=== PATIENT | female | born 1935 | race Caucasian/White ===

== ENCOUNTER 2018-11-16 19:07 | Inpatient (IN) ==
[2018-11-16] MEDS ORDERED: GLUCAGON 1 MG VIAL IM PRN ×2 (22:21→22:42)
[2018-11-16] MEDS ORDERED: DEXTROSE 50% 25 GM/50 ML VIAL IV PRN (22:21)
[2018-11-16] MEDS ORDERED: DEXTROSE 50% 25 GM/50 ML SYRINGE IV PRN (22:42)
[2018-11-16] MEDS ORDERED: DILTIAZEM 50 MG/10 ML VIAL IV ONE (22:46)
[2018-11-16] MEDS ORDERED: SODIUM CHLORIDE 0.9% 100 ML IV ONE (22:50)
[2018-11-16] MEDS ORDERED: LEVOFLOXACIN INJ 750 MG in PREMIX 1 EACH IV SCH (23:00)
[2018-11-16] MEDS ORDERED: FUROSEMIDE 40 MG/4 ML VIAL IV ONE (23:11)
[2018-11-16] MEDS: dilTIAZem Drip 125 MG/125 ML PREMIX IV SCH (23:12)
[2018-11-17] MEDS: PIPERACILLIN/TAZOBACTAM 3,375 MG in SODIUM CHLORIDE 0.9% 100 ML IV SCH ×3 (00:09→17:00)
[2018-11-17 00:20] LABS: Basophils % 0.1 % (0.0-0.8); Hematocrit 32.1 VOL% (35.7-47.0); Immature Granulocytes % 0.4 %; Immature Granulocytes Absolute 0.06 #; Lymphocytes # 0.5 10*3/uL (1.4-4.0); Lymphocytes % 3.2 % (21.3-54.2); Red Cell Distribution Width 18.6 % (9.3-17.3)
[2018-11-17] MEDS: LEVALBUTEROL 1.25 MG/3 ML NEB RESP TX SCH ×4 (00:26→19:46)
[2018-11-17 00:29] LABS: Hemoglobin 9.4 GM/DL (12.0-16.0); Mean Corpuscular HGB Conc 29.3 GM/DL (32-36); Mean Corpuscular Hemoglobin 24 PG (27-34); Mean Corpuscular Volume 80.3 FL (87-102); Monocytes # 1.7 10*3/uL (0.11-0.8); Monocytes % 11.4 % (1.7-12.7); Neutrophils # 12.4 10*3/uL (1.4-7.4); Neutrophils % 84.9 % (38.7-73.9); Platelet Count 239 T/CUMM (130-400); White Blood Count 14.6 T/CUMM (4-12)
[2018-11-17 00:51] LABS: Albumin 3.7 G/DL (3.4-5.0); Calcium 9.5 MG/DL (8.5-10.1); Osmolality,Calculated 262.6 MOS/KG (273-304); Potassium 5.5 MMOL/L (3.5-5.1)
[2018-11-17] MEDS: ENOXAPARIN 80 MG/0.8 ML SYRINGE SUBCUT SCH ×2 (01:39→13:15)
[2018-11-17 02:40] LABS: Apearance,Urine CLOUDY (Clear); Bacteria,Urine Many /HPF (Few); Bilirubin,Urine Negative (Negative); Blood, Urine Moderate mg/dL (Negative); Glucose,Urine (UA) Negative (Negative); Ketones,Urine Negative (Negative); Nitrite,Urine Negative (Negative); Protein,Urine 30 MG/DL; RBC,Urine 20 /HPF (0-4); Urine Color Yellow (Yellow); Urine Specific Gravity 1.015 (1.001-1.035); Urine Urobilinogen < 2.0 EU/DL (0.2-1.0); WBC,Urine 318 /HPF (0-6)
[2018-11-17 03:41] LABS: Band Neutrophils 6 % (0-10); Lymphocytes 3 % (20-55); Segmented Neutrophils 81 % (50-85); Total Cells Counted 100
[2018-11-17 03:42] LABS: Anisocytosis 1+; Hypochromasia 1+; Ovalocytes Few; Platelet Estimate Adequate; Target Cells Few
[2018-11-17] MEDS: HYDROmorphone 2 MG/1 ML VIAL IV PRN (04:12)
[2018-11-17 07:49] LABS: Basophils % 0.2 % (0.0-0.8); Hematocrit 30.2 VOL% (35.7-47.0); Hemoglobin 8.8 GM/DL (12.0-16.0); Immature Granulocytes % 0.4 %; Immature Granulocytes Absolute 0.05 #; Lymphocytes # 0.7 10*3/uL (1.4-4.0); Lymphocytes % 5.2 % (21.3-54.2); Mean Corpuscular HGB Conc 29.1 GM/DL (32-36); Mean Corpuscular Hemoglobin 24 PG (27-34); Mean Corpuscular Volume 80.5 FL (87-102); Mean Platelet Volume 11.8 FL (9.6-12.0); Monocytes # 1.3 10*3/uL (0.11-0.8); Monocytes % 10.7 % (1.7-12.7); NRBC # 0.02 10*3/uL; Neutrophils # 10.5 10*3/uL (1.4-7.4); Neutrophils % 83.5 % (38.7-73.9); Platelet Count 196 T/CUMM (130-400); Red Blood Count 3.75 MC/CUMM (3.8-5.5); Red Cell Distribution Width 18.6 % (9.3-17.3); White Blood Count 12.6 T/CUMM (4-12)
[2018-11-17] MEDS ORDERED: ONDANSETRON 4 MG/2 ML VIAL IV PRN (08:05)
[2018-11-17 08:10] LABS: Albumin 3.4 G/DL (3.4-5.0); Bilirubin,Total 0.6 MG/DL (0.2-1.0); Calcium 8.8 MG/DL (8.5-10.1); Osmolality,Calculated 263.5 MOS/KG (273-304); Potassium 5.2 MMOL/L (3.5-5.1); Total Protein 7.4 G/DL (6.4-8.3)
[2018-11-17] MEDS: INSULIN REGULAR 100 UNIT/ML SUBCUT SCH ×4 (08:24→21:21)
[2018-11-17] MEDS: methylPREDNISolone SOD SUC 40 MG/1 ML VIAL IV SCH ×2 (08:27→16:56)
[2018-11-17] MEDS: FUROSEMIDE 40 MG/4 ML VIAL IV SCH ×2 (08:29→16:59)
[2018-11-17] MEDS: dilTIAZem Drip 125 MG/125 ML PREMIX IV SCH ×3 (08:31→23:34)
[2018-11-17] MEDS ORDERED: PANTOPRAZOLE 40 MG TABLET PO SCH (09:00)
[2018-11-17] MEDS ORDERED: ENOXAPARIN 40 MG/0.4 ML SYRINGE SUBCUT SCH (09:00)
[2018-11-17] MEDS: LINEZOLID INJ 600 MG in PREMIX 1 EACH IV SCH ×2 (12:30→22:52)
[2018-11-17] MEDS ORDERED: MAGNESIUM HYDROXIDE SUSP 30 ML UDCUP PO PRN (16:54)
[2018-11-17] MEDS ORDERED: CARBIDOPA/LEVODOPA 25-100 MG TABLET PO SCH (21:00)
[2018-11-17] MEDS: METOPROLOL TARTRATE 25 MG TABLET PO SCH (21:21)
[2018-11-17] MEDS: DONEPEZIL 10 MG TABLET PO SCH (21:21)
[2018-11-17] MEDS: MAGNESIUM HYDROXIDE SUSP 30 ML UDCUP PO SCH (21:21)
[2018-11-17] MEDS: BUDESONIDE/FORMOTEROL 160-4.5 INHALER 6 GM INH SCH (21:27)
[2018-11-18] MEDS: methylPREDNISolone SOD SUC 40 MG/1 ML VIAL IV SCH ×4 (00:47→23:55)
[2018-11-18] MEDS: PIPERACILLIN/TAZOBACTAM 3,375 MG in SODIUM CHLORIDE 0.9% 100 ML IV SCH ×4 (00:47→23:55)
[2018-11-18] MEDS: LEVALBUTEROL 1.25 MG/3 ML NEB RESP TX SCH ×4 (01:21→20:33)
[2018-11-18] MEDS: dilTIAZem Drip 125 MG/125 ML PREMIX IV SCH (03:17)
[2018-11-18 05:19] LABS: Hematocrit 29.9 VOL% (35.7-47.0); Hemoglobin 8.7 GM/DL (12.0-16.0); Immature Granulocytes % 0.6 %; Immature Granulocytes Absolute 0.05 #; Lymphocytes # 0.3 10*3/uL (1.4-4.0); Lymphocytes % 3.4 % (21.3-54.2); Mean Corpuscular HGB Conc 29.1 GM/DL (32-36); Mean Corpuscular Hemoglobin 23 PG (27-34); Mean Corpuscular Volume 80.2 FL (87-102); Mean Platelet Volume 11.8 FL (9.6-12.0); Monocytes # 0.4 10*3/uL (0.11-0.8); Monocytes % 3.9 % (1.7-12.7); NRBC # 0.02 10*3/uL; Neutrophils # 8.2 10*3/uL (1.4-7.4); Neutrophils % 92.1 % (38.7-73.9); Platelet Count 202 T/CUMM (130-400); Red Blood Count 3.73 MC/CUMM (3.8-5.5); Red Cell Distribution Width 18.8 % (9.3-17.3); White Blood Count 8.9 T/CUMM (4-12)
[2018-11-18 05:39] LABS: Calcium 8.7 MG/DL (8.5-10.1); Osmolality,Calculated 266.4 MOS/KG (273-304); Potassium 4.9 MMOL/L (3.5-5.1)
[2018-11-18 05:51] LABS: Hypochromasia 2+; Lymphocytes 6 % (20-55); Platelet Estimate Normal; Segmented Neutrophils 90 % (50-85); Total Cells Counted 100
[2018-11-18] MEDS ORDERED: POLYETHYLENE GLYCOL POWDER 17 GM PACK PO SCH (09:00)
[2018-11-18] MEDS: MONTELUKAST 10 MG TABLET PO SCH (09:05)
[2018-11-18] MEDS: MAGNESIUM HYDROXIDE SUSP 30 ML UDCUP PO SCH ×2 (09:05→21:01)
[2018-11-18] MEDS: METOPROLOL TARTRATE 25 MG TABLET PO SCH ×2 (09:05→21:01)
[2018-11-18] MEDS: FUROSEMIDE 40 MG/4 ML VIAL IV SCH ×2 (09:05→17:18)
[2018-11-18] MEDS: PANTOPRAZOLE 40 MG VIAL IV SCH (09:08)
[2018-11-18] MEDS: INSULIN REGULAR 100 UNIT/ML SUBCUT SCH ×4 (09:13→21:05)
[2018-11-18] MEDS: BUDESONIDE/FORMOTEROL 160-4.5 INHALER 6 GM INH SCH ×2 (09:14→21:01)
[2018-11-18] MEDS: LINEZOLID INJ 600 MG in PREMIX 1 EACH IV SCH ×2 (10:44→22:36)
[2018-11-18] MEDS: DILTIAZEM CD 240 MG CAPSULE PO SCH (10:44)
[2018-11-18] MEDS: DONEPEZIL 10 MG TABLET PO SCH (21:00)
[2018-11-19] MEDS: LEVALBUTEROL 1.25 MG/3 ML NEB RESP TX SCH ×4 (01:15→19:07)
[2018-11-19 02:45] LABS: Hematocrit 30.3 VOL% (35.7-47.0); Hemoglobin 8.8 GM/DL (12.0-16.0); Immature Granulocytes % 0.2 %; Immature Granulocytes Absolute 0.02 #; Lymphocytes # 0.3 10*3/uL (1.4-4.0); Lymphocytes % 3.4 % (21.3-54.2); Mean Corpuscular Hemoglobin 23 PG (27-34); Mean Corpuscular Volume 80.6 FL (87-102); Mean Platelet Volume 11.6 FL (9.6-12.0); Monocytes # 0.5 10*3/uL (0.11-0.8); Monocytes % 5.1 % (1.7-12.7); Neutrophils # 8.5 10*3/uL (1.4-7.4); Neutrophils % 91.3 % (38.7-73.9); Platelet Count 211 T/CUMM (130-400); Red Blood Count 3.76 MC/CUMM (3.8-5.5); Red Cell Distribution Width 18.6 % (9.3-17.3); White Blood Count 9.3 T/CUMM (4-12)
[2018-11-19] MEDS: dilTIAZem Drip 125 MG/125 ML PREMIX IV SCH (03:03)
[2018-11-19 03:36] LABS: Calcium 8.7 MG/DL (8.5-10.1); Osmolality,Calculated 258.1 MOS/KG (273-304); Potassium 5.7 MMOL/L (3.5-5.1)
[2018-11-19 04:57] LABS: Band Neutrophils 1 % (0-10); Hypochromasia 1+; Lymphocytes 4 % (20-55); Ovalocytes Slight; Platelet Estimate Adequate; Segmented Neutrophils 86 % (50-85); Total Cells Counted 100
[2018-11-19] MEDS ORDERED: SODIUM POLYSTYRENE SULFATE 15 GM/60 ML BOTTLE PO ONE ×2 (06:47→20:00)
[2018-11-19] MEDS: MONTELUKAST 10 MG TABLET PO SCH (08:14)
[2018-11-19] MEDS: DILTIAZEM CD 240 MG CAPSULE PO SCH ×2 (08:14→22:13)
[2018-11-19] MEDS: METOPROLOL TARTRATE 25 MG TABLET PO SCH ×2 (08:17→22:15)
[2018-11-19] MEDS: MAGNESIUM HYDROXIDE SUSP 30 ML UDCUP PO SCH (08:18)
[2018-11-19] MEDS: PANTOPRAZOLE 40 MG VIAL IV SCH (08:19)
[2018-11-19] MEDS: PIPERACILLIN/TAZOBACTAM 3,375 MG in SODIUM CHLORIDE 0.9% 100 ML IV SCH ×2 (08:23→17:22)
[2018-11-19] MEDS: methylPREDNISolone SOD SUC 40 MG/1 ML VIAL IV SCH ×2 (08:28→17:22)
[2018-11-19] MEDS: FUROSEMIDE 40 MG/4 ML VIAL IV SCH (08:29)
[2018-11-19] MEDS: BUDESONIDE/FORMOTEROL 160-4.5 INHALER 6 GM INH SCH ×2 (08:30→22:20)
[2018-11-19] MEDS: INSULIN REGULAR 100 UNIT/ML SUBCUT SCH ×4 (08:31→23:19)
[2018-11-19] MEDS: LINEZOLID INJ 600 MG in PREMIX 1 EACH IV SCH (10:22)
[2018-11-19] MEDS: HYDROmorphone 2 MG/1 ML VIAL IV PRN ×3 (12:20→22:20)
[2018-11-19] MEDS: SODIUM CHLORIDE 0.9% 1,000 ML IV SCH (13:22)
[2018-11-19] MEDS: DONEPEZIL 10 MG TABLET PO SCH (22:12)
[2018-11-19] MEDS: ALPRAZolam 0.5 MG TABLET PO PRN (23:10)
[2018-11-20] MEDS: LEVALBUTEROL 1.25 MG/3 ML NEB RESP TX SCH ×4 (00:17→19:11)
[2018-11-20] MEDS: methylPREDNISolone SOD SUC 40 MG/1 ML VIAL IV SCH ×3 (02:00→18:10)
[2018-11-20] MEDS: ENOXAPARIN 80 MG/0.8 ML SYRINGE SUBCUT SCH (02:00)
[2018-11-20] MEDS: PIPERACILLIN/TAZOBACTAM 3,375 MG in SODIUM CHLORIDE 0.9% 100 ML IV SCH ×3 (02:03→18:11)
[2018-11-20 04:58] LABS: Calcium 8.3 MG/DL (8.5-10.1); Osmolality,Calculated 272.1 MOS/KG (273-304); Potassium 3.9 MMOL/L (3.5-5.1)
[2018-11-20] MEDS: SODIUM CHLORIDE 0.9% 1,000 ML IV SCH (09:16)
[2018-11-20] MEDS: FUROSEMIDE 40 MG/4 ML VIAL IV SCH (09:18)
[2018-11-20] MEDS: ALPRAZolam 0.5 MG TABLET PO PRN ×2 (09:24→20:21)
[2018-11-20] MEDS: PANTOPRAZOLE 40 MG VIAL IV SCH (09:24)
[2018-11-20] MEDS: INSULIN REGULAR 100 UNIT/ML SUBCUT SCH ×4 (09:24→20:20)
[2018-11-20] MEDS: MONTELUKAST 10 MG TABLET PO SCH (09:25)
[2018-11-20] MEDS: DILTIAZEM CD 240 MG CAPSULE PO SCH ×2 (09:25→20:21)
[2018-11-20] MEDS: METOPROLOL TARTRATE 25 MG TABLET PO SCH ×2 (09:25→21:17)
[2018-11-20] MEDS: BUDESONIDE/FORMOTEROL 160-4.5 INHALER 6 GM INH SCH ×2 (09:26→20:22)
[2018-11-20] MEDS: HYDROmorphone 2 MG/1 ML VIAL IV PRN (11:50)
[2018-11-20] MEDS: DONEPEZIL 10 MG TABLET PO SCH (20:21)
[2018-11-21] MEDS: methylPREDNISolone SOD SUC 40 MG/1 ML VIAL IV SCH ×3 (00:14→17:45)
[2018-11-21] MEDS: PIPERACILLIN/TAZOBACTAM 3,375 MG in SODIUM CHLORIDE 0.9% 100 ML IV SCH ×3 (00:15→17:46)
[2018-11-21] MEDS: LEVALBUTEROL 1.25 MG/3 ML NEB RESP TX SCH ×4 (00:38→19:43)
[2018-11-21 05:01] LABS: Calcium 8.4 MG/DL (8.5-10.1); Osmolality,Calculated 274.5 MOS/KG (273-304); Potassium 3.3 MMOL/L (3.5-5.1)
[2018-11-21] MEDS: SODIUM CHLORIDE 0.9% 1,000 ML IV SCH (05:16)
[2018-11-21] MEDS: dilTIAZem Drip 125 MG/125 ML PREMIX IV SCH (07:26)
[2018-11-21] MEDS: PANTOPRAZOLE 40 MG VIAL IV SCH (09:34)
[2018-11-21] MEDS: FUROSEMIDE 40 MG/4 ML VIAL IV SCH (09:35)
[2018-11-21] MEDS: INSULIN REGULAR 100 UNIT/ML SUBCUT SCH ×4 (09:35→21:48)
[2018-11-21] MEDS: BUDESONIDE/FORMOTEROL 160-4.5 INHALER 6 GM INH SCH ×2 (09:36→21:48)
[2018-11-21] MEDS: DILTIAZEM CD 240 MG CAPSULE PO SCH ×2 (09:36→21:47)
[2018-11-21] MEDS: MONTELUKAST 10 MG TABLET PO SCH (09:36)
[2018-11-21] MEDS: METOPROLOL TARTRATE 25 MG TABLET PO SCH (09:36)
[2018-11-21] MEDS ORDERED: POTASSIUM CHLORIDE 20 MEQ/15 ML UDCUP PO ONE (14:26)
[2018-11-21] MEDS: METOPROLOL TARTRATE 50 MG TABLET PO SCH (21:47)
[2018-11-21] MEDS: DONEPEZIL 10 MG TABLET PO SCH (21:47)
[2018-11-22] MEDS: methylPREDNISolone SOD SUC 40 MG/1 ML VIAL IV SCH ×3 (00:21→16:45)
[2018-11-22] MEDS: LEVALBUTEROL 1.25 MG/3 ML NEB RESP TX SCH ×4 (02:34→19:32)
[2018-11-22] MEDS: PIPERACILLIN/TAZOBACTAM 3,375 MG in SODIUM CHLORIDE 0.9% 100 ML IV SCH ×3 (03:21→16:46)
[2018-11-22 04:53] LABS: Calcium 8.9 MG/DL (8.5-10.1); Osmolality,Calculated 271.7 MOS/KG (273-304); Potassium 3.7 MMOL/L (3.5-5.1)
[2018-11-22] MEDS: DILTIAZEM CD 240 MG CAPSULE PO SCH ×2 (08:42→20:00)
[2018-11-22] MEDS: METOPROLOL TARTRATE 50 MG TABLET PO SCH ×2 (08:43→20:00)
[2018-11-22] MEDS: INSULIN REGULAR 100 UNIT/ML SUBCUT SCH ×4 (09:16→22:29)
[2018-11-22] MEDS: FUROSEMIDE 40 MG/4 ML VIAL IV SCH (09:17)
[2018-11-22] MEDS: MONTELUKAST 10 MG TABLET PO SCH (09:18)
[2018-11-22] MEDS: BUDESONIDE/FORMOTEROL 160-4.5 INHALER 6 GM INH SCH ×2 (09:18→22:17)
[2018-11-22] MEDS: MAGNESIUM HYDROXIDE SUSP 30 ML UDCUP PO SCH ×2 (09:18→22:18)
[2018-11-22] MEDS: PANTOPRAZOLE 40 MG VIAL IV SCH ×2 (09:18→22:18)
[2018-11-22] MEDS ORDERED: PROPOFOL 200 MG/20 ML VIAL IV ONE (09:26)
[2018-11-22] MEDS ORDERED: ETOMIDATE 40 MG/20 ML VIAL IV ONE (09:27)
[2018-11-22] MEDS ORDERED: ESMOLOL 100 MG/10 ML VIAL IV ONE (09:27)
[2018-11-22] MEDS: HYDROmorphone 2 MG/1 ML VIAL IV PRN (10:48)
[2018-11-22] MEDS: DONEPEZIL 10 MG TABLET PO SCH (20:00)
[2018-11-22] MEDS ORDERED: dilTIAZem Drip 125 MG/125 ML PREMIX IV ONE (20:11)
[2018-11-22] MEDS: dilTIAZem Drip 125 MG/125 ML PREMIX IV SCH (20:12)
[2018-11-22] MEDS: POTASSIUM CHLORIDE 20 MEQ TABLET PO PRN (22:18)
[2018-11-23] MEDS: LEVALBUTEROL 1.25 MG/3 ML NEB RESP TX SCH ×4 (00:27→19:26)
[2018-11-23] MEDS: methylPREDNISolone SOD SUC 40 MG/1 ML VIAL IV SCH ×4 (01:20→23:41)
[2018-11-23] MEDS: PIPERACILLIN/TAZOBACTAM 3,375 MG in SODIUM CHLORIDE 0.9% 100 ML IV SCH ×2 (01:22→11:25)
[2018-11-23 04:35] LABS: Calcium 9.2 MG/DL (8.5-10.1); Osmolality,Calculated 281.2 MOS/KG (273-304); Potassium 4.3 MMOL/L (3.5-5.1)
[2018-11-23 04:40] LABS: Hemoglobin 9.2 GM/DL (12.0-16.0); Immature Granulocytes % 0.2 %; Immature Granulocytes Absolute 0.02 #; Lymphocytes # 0.2 10*3/uL (1.4-4.0); Lymphocytes % 2.6 % (21.3-54.2); Mean Corpuscular HGB Conc 28.5 GM/DL (32-36); Mean Corpuscular Hemoglobin 23 PG (27-34); Mean Corpuscular Volume 82.2 FL (87-102); Mean Platelet Volume 10.8 FL (9.6-12.0); Monocytes # 0.5 10*3/uL (0.11-0.8); Monocytes % 5.7 % (1.7-12.7); Neutrophils # 7.4 10*3/uL (1.4-7.4); Neutrophils % 91.5 % (38.7-73.9); Platelet Count 140 T/CUMM (130-400); Red Blood Count 3.93 MC/CUMM (3.8-5.5); Red Cell Distribution Width 18.2 % (9.3-17.3); White Blood Count 8.1 T/CUMM (4-12)
[2018-11-23 04:42] LABS: Hematocrit 32.3 VOL% (35.7-47.0)
[2018-11-23 04:51] LABS: Hypochromasia Slight; Lymphocytes 4 % (20-55); Platelet Estimate Adequate; Polychromasia Few; Segmented Neutrophils 95 % (50-85); Total Cells Counted 100
[2018-11-23 09:02] LABS: ABG Base Excess 16.6 MMOL/L (-2.5-2.5); ABG HCO3 43.7 MMOL/L (20-26); ABG Oxygen Saturation 82.4 % (95-100); ABG PH 7.418 (7.35-7.45); ABG PO2 46.6 MM HG (80-95); ABG TCO2 45.9 MMOL/L (23-27)
[2018-11-23 09:04] LABS: ABG PCO2 69.3 MM HG (35-48)
[2018-11-23] MEDS ORDERED: METOPROLOL TARTRATE 50 MG TABLET PO ONE (09:50)
[2018-11-23] MEDS ORDERED: FUROSEMIDE 40 MG/4 ML VIAL IV ONE (10:11)
[2018-11-23] MEDS: INSULIN REGULAR 100 UNIT/ML SUBCUT SCH ×4 (11:03→20:46)
[2018-11-23] MEDS: MONTELUKAST 10 MG TABLET PO SCH (11:17)
[2018-11-23] MEDS: METOPROLOL TARTRATE 50 MG TABLET PO SCH (11:17)
[2018-11-23] MEDS: DILTIAZEM CD 240 MG CAPSULE PO SCH ×2 (11:17→20:47)
[2018-11-23] MEDS: PANTOPRAZOLE 40 MG VIAL IV SCH ×2 (11:22→20:47)
[2018-11-23] MEDS: BUDESONIDE/FORMOTEROL 160-4.5 INHALER 6 GM INH SCH ×2 (11:25→20:51)
[2018-11-23] MEDS: MAGNESIUM HYDROXIDE SUSP 30 ML UDCUP PO SCH ×2 (11:25→20:00)
[2018-11-23] MEDS: FUROSEMIDE 40 MG/4 ML VIAL IV SCH ×2 (11:31→16:33)
[2018-11-23] MEDS ORDERED: ENOXAPARIN 80 MG/0.8 ML SYRINGE SUBCUT ONE (14:46)
[2018-11-23] MEDS: ALPRAZolam 0.25 MG TABLET PO PRN (16:33)
[2018-11-23] MEDS: AMOXICILLIN 50 MG/ML 150 ML/BOTTLE PO SCH ×2 (16:33→22:00)
[2018-11-23] MEDS: METOPROLOL TARTRATE 100 MG TABLET PO SCH (20:47)
[2018-11-23] MEDS: DONEPEZIL 10 MG TABLET PO SCH (20:47)
[2018-11-24] MEDS: LEVALBUTEROL 1.25 MG/3 ML NEB RESP TX SCH ×4 (00:15→19:40)
[2018-11-24] MEDS: ALPRAZolam 0.25 MG TABLET PO PRN ×2 (03:07→21:19)
[2018-11-24 03:53] LABS: Hematocrit 33.2 VOL% (35.7-47.0); Hemoglobin 9.4 GM/DL (12.0-16.0); Immature Granulocytes % 0.4 %; Immature Granulocytes Absolute 0.04 #; Lymphocytes # 0.4 10*3/uL (1.4-4.0); Lymphocytes % 4.1 % (21.3-54.2); Mean Corpuscular HGB Conc 28.3 GM/DL (32-36); Mean Corpuscular Hemoglobin 23 PG (27-34); Mean Corpuscular Volume 81.2 FL (87-102); Mean Platelet Volume 10.5 FL (9.6-12.0); Monocytes # 0.5 10*3/uL (0.11-0.8); Monocytes % 5.2 % (1.7-12.7); Neutrophils # 9.1 10*3/uL (1.4-7.4); Neutrophils % 90.3 % (38.7-73.9); Platelet Count 149 T/CUMM (130-400); Red Blood Count 4.09 MC/CUMM (3.8-5.5); Red Cell Distribution Width 18.3 % (9.3-17.3)
[2018-11-24 04:21] LABS: Blood Urea Nitrogen 28 MG/DL (7-18); Calcium 9.1 MG/DL (8.5-10.1); Glucose 156 MG/DL (74-106); Potassium 3.8 MMOL/L (3.5-5.1); Sodium 136 MMOL/L (136-145)
[2018-11-24] MEDS: dilTIAZem Drip 125 MG/125 ML PREMIX IV SCH ×3 (04:30→22:47)
[2018-11-24 04:41] LABS: Anisocytosis 1+; Band Neutrophils 3 % (0-10); Lymphocytes 3 % (20-55); Macrocytosis 1+; Ovalocytes 1+; Platelet Estimate Adequate; Segmented Neutrophils 89 % (50-85); Target Cells 2+; Total Cells Counted 100
[2018-11-24] MEDS: AMOXICILLIN 50 MG/ML 150 ML/BOTTLE PO SCH ×3 (05:35→23:37)
[2018-11-24] MEDS ORDERED: DIGOXIN 0.5 MG/2 ML AMP IV ONE (07:24)
[2018-11-24] MEDS: DILTIAZEM CD 240 MG CAPSULE PO SCH ×2 (08:19→21:27)
[2018-11-24] MEDS: METOPROLOL TARTRATE 100 MG TABLET PO SCH ×2 (08:19→22:50)
[2018-11-24] MEDS ORDERED: NITROGLYCERIN SL 0.4 MG TABLET SL ONE (08:19)
[2018-11-24] MEDS: MONTELUKAST 10 MG TABLET PO SCH (08:19)
[2018-11-24] MEDS ORDERED: NITROGLYCERIN SL 0.4 MG TABLET SL PRN (08:22)
[2018-11-24] MEDS ORDERED: ASPIRIN CHEW 81 MG TABLET PO ONE (08:23)
[2018-11-24] MEDS: FUROSEMIDE 40 MG/4 ML VIAL IV SCH ×2 (08:34→17:14)
[2018-11-24] MEDS: PANTOPRAZOLE 40 MG VIAL IV SCH (08:35)
[2018-11-24] MEDS: methylPREDNISolone SOD SUC 40 MG/1 ML VIAL IV SCH (08:36)
[2018-11-24] MEDS: BUDESONIDE/FORMOTEROL 160-4.5 INHALER 6 GM INH SCH ×2 (08:38→22:50)
[2018-11-24] MEDS: MAGNESIUM HYDROXIDE SUSP 30 ML UDCUP PO SCH ×2 (08:38→22:08)
[2018-11-24] MEDS: ISOSORBIDE MONONITRATE 30 MG TABLET PO SCH (08:46)
[2018-11-24] MEDS: INSULIN REGULAR 100 UNIT/ML SUBCUT SCH ×4 (09:43→21:21)
[2018-11-24] MEDS ORDERED: ENOXAPARIN 80 MG/0.8 ML SYRINGE SUBCUT ONE ×2 (10:00→17:00)
[2018-11-24 10:37] LABS: Troponin I 0.055 NG/ML (0.00-0.045)
[2018-11-24] MEDS: ASCORBIC ACID 500 MG TABLET PO SCH ×2 (12:45→21:19)
[2018-11-24] MEDS ORDERED: DIGOXIN 0.25 MG TABLET PO ONE (13:00)
[2018-11-24 13:14] LABS: Troponin I 0.055 NG/ML (0.00-0.045)
[2018-11-24] MEDS: POTASSIUM CHLORIDE 20 MEQ TABLET PO PRN (13:20)
[2018-11-24 16:04] LABS: Troponin I 0.057 NG/ML (0.00-0.045)
[2018-11-24 17:34] LABS: Total Protein,Pleural Fluid 2.3 G/DL
[2018-11-24 19:05] LABS: Lymphocytes,Pleural Fluid 81 %; Neutrophils,Pleural Fluid 19 %
[2018-11-24 19:07] LABS: RBC,Pleural Fluid 9162 T/CUMM
[2018-11-24] MEDS ORDERED: FUROSEMIDE 40 MG/4 ML VIAL IV ONE (20:22)
[2018-11-24] MEDS: DONEPEZIL 10 MG TABLET PO SCH (21:19)
[2018-11-24] MEDS: PANTOPRAZOLE 40 MG TABLET PO SCH (21:20)
[2018-11-24] MEDS: APIXABAN 5 MG TABLET PO SCH (21:21)
[2018-11-24] MEDS: MORPHINE 4 MG/1 ML VIAL IV PRN (23:35)
[2018-11-25] MEDS: LEVALBUTEROL 1.25 MG/3 ML NEB RESP TX SCH ×4 (00:09→20:14)
[2018-11-25] MEDS: MORPHINE 4 MG/1 ML VIAL IV PRN ×4 (03:57→20:01)
[2018-11-25 04:59] LABS: Basophils % 0.1 % (0.0-0.8); Hematocrit 29.6 VOL% (35.7-47.0); Hemoglobin 8.6 GM/DL (12.0-16.0); Immature Granulocytes % 0.6 %; Immature Granulocytes Absolute 0.08 #; Lymphocytes # 0.4 10*3/uL (1.4-4.0); Mean Corpuscular HGB Conc 29.1 GM/DL (32-36); Mean Corpuscular Hemoglobin 23 PG (27-34); Mean Corpuscular Volume 80.4 FL (87-102); Mean Platelet Volume 10.3 FL (9.6-12.0); Monocytes # 0.8 10*3/uL (0.11-0.8); Monocytes % 6.1 % (1.7-12.7); NRBC # 0.02 10*3/uL; Neutrophils # 12.2 10*3/uL (1.4-7.4); Neutrophils % 90.2 % (38.7-73.9); Platelet Count 121 T/CUMM (130-400); Red Blood Count 3.68 MC/CUMM (3.8-5.5); Red Cell Distribution Width 18.1 % (9.3-17.3); White Blood Count 13.5 T/CUMM (4-12)
[2018-11-25 05:15] LABS: Hypochromasia 2+; Lymphocytes 4 % (20-55); Microcytosis 1+; Ovalocytes Slight; Segmented Neutrophils 92 % (50-85); Target Cells Slight; Total Cells Counted 100
[2018-11-25 05:16] LABS: Platelet Estimate Adequate
[2018-11-25] MEDS: AMOXICILLIN 50 MG/ML 150 ML/BOTTLE PO SCH (05:49)
[2018-11-25 07:00] LABS: Blood Urea Nitrogen 42 MG/DL (7-18); Calcium 8.8 MG/DL (8.5-10.1); Glucose 258 MG/DL (74-106); Osmolality,Calculated 289.1 MOS/KG (273-304); Potassium 4.3 MMOL/L (3.5-5.1); Sodium 135 MMOL/L (136-145)
[2018-11-25] MEDS: INSULIN REGULAR 100 UNIT/ML SUBCUT SCH ×4 (09:52→20:38)
[2018-11-25] MEDS: FUROSEMIDE 40 MG/4 ML VIAL IV SCH ×2 (09:52→16:00)
[2018-11-25] MEDS: MONTELUKAST 10 MG TABLET PO SCH (09:53)
[2018-11-25] MEDS: DILTIAZEM CD 240 MG CAPSULE PO SCH ×2 (09:53→20:43)
[2018-11-25] MEDS: APIXABAN 5 MG TABLET PO SCH ×2 (09:53→20:38)
[2018-11-25] MEDS: ASCORBIC ACID 500 MG TABLET PO SCH (09:53)
[2018-11-25] MEDS: MAGNESIUM HYDROXIDE SUSP 30 ML UDCUP PO SCH ×2 (09:53→21:32)
[2018-11-25] MEDS: PANTOPRAZOLE 40 MG TABLET PO SCH ×2 (09:54→20:38)
[2018-11-25] MEDS: METOPROLOL TARTRATE 100 MG TABLET PO SCH ×2 (09:54→20:43)
[2018-11-25] MEDS: BUDESONIDE/FORMOTEROL 160-4.5 INHALER 6 GM INH SCH (09:54)
[2018-11-25] MEDS: ISOSORBIDE MONONITRATE 30 MG TABLET PO SCH (09:54)
[2018-11-25] MEDS ORDERED: ALPRAZolam 0.25 MG TABLET PO PRN (10:26)
[2018-11-25] MEDS: DIGOXIN 0.125 MG TABLET PO SCH (12:24)
[2018-11-25] MEDS ORDERED: FUROSEMIDE 40 MG/4 ML VIAL IV ONE (12:58)
[2018-11-26] MEDS: LEVALBUTEROL 1.25 MG/3 ML NEB RESP TX SCH ×2 (01:03→07:10)
[2018-11-26] MEDS: MORPHINE 4 MG/1 ML VIAL IV PRN ×4 (06:39→14:43)
[2018-11-26] MEDS: MAGNESIUM HYDROXIDE SUSP 30 ML UDCUP PO SCH (09:40)
[2018-11-26] MEDS: MONTELUKAST 10 MG TABLET PO SCH (09:40)
[2018-11-26] MEDS: DILTIAZEM CD 240 MG CAPSULE PO SCH (09:40)
[2018-11-26] MEDS: METOPROLOL TARTRATE 100 MG TABLET PO SCH (09:41)
[2018-11-26] MEDS: ISOSORBIDE MONONITRATE 30 MG TABLET PO SCH (09:41)
[2018-11-26] MEDS: APIXABAN 5 MG TABLET PO SCH (09:41)
[2018-11-26] MEDS: PANTOPRAZOLE 40 MG TABLET PO SCH (09:41)
[2018-11-26] MEDS: FUROSEMIDE 40 MG/4 ML VIAL IV SCH (09:46)
[2018-11-26] MEDS ORDERED: fentaNYL 25 MCG/HR PATCH TRANSDERM SCH (12:00)
[2018-11-26] MEDS: INSULIN REGULAR 100 UNIT/ML SUBCUT SCH ×2 (12:37→13:18)
[2018-11-26] MEDS: DIGOXIN 0.125 MG TABLET PO SCH (13:21)
[2018-11-26] MEDS ORDERED: MAGNESIUM HYDROXIDE SUSP 30 ML UDCUP PO PRN (13:58)
[2018-11-26] MEDS ORDERED: MORPHINE 10 MG/5 ML UDCUP PO PRN (13:58)
[2018-11-26 14:13] VITALS: BP 95/71
== END 2018-11-26 15:26 | disposition expired | DRG 177 ==
LOC: SUATTDRO 21:21 → N.TELEN 21:21 → N.ICU 23:10 → N.TELES 11-18 00:27 → N.4E 11-25 18:39
PROVIDERS: ADMIT Internal Medicine; ATTEND Internal Medicine